=== PATIENT | male | born 1980 | race Caucasian/White ===

== ENCOUNTER 2016-05-14 03:54 | Emergency (ER) | payer MEDICARE, MEDICAID ==
[2016-05-14 04:11] VITALS: BP 125/60; PULSE 92; RESP 18; TEMP 98.1; O2SAT 96
[2016-05-14] MEDS ORDERED: SODIUM CHLOR 0.9% 1000 ML INJ 1,000 ML IV ONE (05:45)
[2016-05-14] MEDS ORDERED: SODIUM CHLORIDE 0.9% FLUSH 10 ML FLUSH IVF PRN (05:45)
[2016-05-14 06:08] VITALS: BP 136/74; PULSE 75; RESP 17; O2SAT 97
[2016-05-14 06:18] LABS: AUTOMATED NEUTROPHIL # 7.5 TH/MM3 (1.8-7.7); BASOPHIL # 0.1 TH/MM3 (0-0.2); BASOPHIL % 0.8 % (0.0-2.0); EOSINOPHIL % 0.2 % (0.0-4.0); HEMATOCRIT 43.7 % (39.0-51.0); HEMO FLAGS DIFF FINAL; LYMPH % 26.3 % (9.0-44.0); LYMPHOCYTE # 3.1 TH/MM3 (1.0-4.8); MEAN CELL VOLUME 87.8 FL (80.0-100.0); MEAN CORPUSCULAR HGB CONC 34.2 % (32.0-36.0); MONO % 9.5 % (0.0-8.0); NEUT % 63.2 % (16.0-70.0); PLATELET COUNT 292 TH/MM3 (150-450); RED BLOOD COUNT 4.98 MIL/MM3 (4.50-5.90); RED CELL DISTRIBUTION WIDTH 13.2 % (11.6-17.2); WHITE BLOOD COUNT 11.9 TH/MM3 (4.0-11.0)
[2016-05-14 06:34] LABS: BICARBONATE 22.1 MEQ/L (21.0-32.0); POTASSIUM 4.1 MEQ/L (3.5-5.1)
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
[2016-05-14 06:55] VITALS: BP 136/74; PULSE 82; RESP 16; O2SAT 97
[2016-05-14 07:15] VITALS: BP 124/66; PULSE 82; RESP 20; O2SAT 97
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
[2016-05-14 09:50] VITALS: BP 130/73
== END 2016-05-14 09:50 | disposition home or self-care (01) ==
LOC: NEPC 03:54
DX: F10.120 Alcohol abuse with intoxication, uncomplicated (principal); F17.200 Nicotine dependence, unspecified, uncomplicated; Z86.59 Personal history of other mental and behavioral disorders; Z86.69 Personal history of other diseases of the nervous system and sense organs; Y04.2XXA Assault by strike against or bumped into by another person, initial encounter
CPT/HCPCS: 70450; 80048; 80307; 85025; 96360; 99284; J7030

== ENCOUNTER 2016-11-18 00:32 | Emergency (ER) | payer MEDICARE, MEDICAID ==
[~2016-11-18] VITALS: Ht 182.9 cm; Wt 85.0 kg
[2016-11-18 00:34] VITALS: BP 131/81; PULSE 123; RESP 16; TEMP 98.5; O2SAT 96
--- NOTE | 2016-11-18 01:38 | PD ---
HPI Chief Complaint: Seizure Time Seen by Provider: 01:06 Travel History International Travel<30 days: No Contact w/Intl Traveler<30days: No Traveled to known affect area: No History of Present Illness HPI The patient is a 36 year old male who presents to the [facility] emergency department with a history of reportedly stating to the triage nurse that he is here to be evaluated for having seizure symptoms. On my arrival to the room, the patient is sleeping soundly and difficult to arouse. The patient when he is awake and mainly answers with one word answers. The patient reports that he does not know why he is in the emergency department. He reports that he does have a history of seizures. He reports that he is on Keppra for seizures. He has been taking his seizure medication on a regular basis. The patient denies having any other acute complaints. On review of systems, the patient denies having any recent fevers, cough, congestion, neck pain, chest pain, shortness of breath, abdominal pain, vomiting, diarrhea, urinary symptoms, or other neurologic symptoms. PFSH Past Medical History Narrative Medical The patient's past medical history is significant for seizure disorder. Anxiety: Yes Depression: Yes Diminished Hearing: No Seizures: Yes Past Surgical History Narrative Surgical The patient's past surgical history is reportedly significant for "brain" surgery. Other Surgery: Yes (BRAIN) Social History Alcohol Use: Yes (daily beer) Tobacco Use: Yes (1ppd) Substance Use: Yes Allergies-Medications (Allergen,Severity, Reaction): Coded Allergies: No Known Allergies (Verified , 11/18/16) Reported Meds & Prescriptions Reported Meds & Active Scripts Active No Active Prescriptions or Reported Medications Review of Systems Except as stated in HPI: all other systems reviewed are Neg General / Constitutional: No: Fever Eyes: No: Visual changes HENT: No: Headaches Cardiovascular: No: Chest Pain or Discomfort Respiratory: No: Shortness of Breath Gastrointestinal: No: Abdominal Pain Genitourinary: No: Dysuria Musculoskeletal: No: Pain Skin: No Rash Neurologic: Positive: Seizures, No: Weakness, Focal Abnormalities, Change in Mentation, Slurred Speech, Sensory Disturbance Psychiatric: No: Depression Endocrine: No: Polydipsia Hematologic/Lymphatic: No: Easy Bruising Physical Exam Narrative General: The patient is a well-developed well-nourished male in no acute distress. Sleeping soundly on my arrival to the room. Head and Neck exam: Head is normocephalic atraumatic. Eyes: The patient is uncooperative with formal ocular motion testing. The patient's pupils are equal round and reactive to light, dilated at 6 mm per Nose: Midline septum with pink mucous membranes Mouth: Dentition unremarkable. Moist mucus membranes. Posterior oropharynx is not erythematous. No tonsillar hypertrophy. Uvula midline. Airway patent. No evidence of tongue trauma, contusion, or laceration. Neck: No palpable lymphadenopathy. No nuchal rigidity. No thyromegaly. Cardiovascular: Sinus tachycardia in the low 100 without murmurs, gallops, or rubs. No pulse deficit to the extremities and simultaneous auscultation and palpation of his radial artery. Lungs: Clear to auscultation bilaterally. No wheezes, rhonchi, or rales. Abdomen: Soft, without tenderness to palpation in all 4 quadrants of the abdomen. No guarding, rebound, or rigidity. Normal bowel sounds are audible. No tenderness on palpation of McBurney's point. Extremities: No clubbing or cyanosis. The patient has trace pedal edema. 2+ pulses in all 4 extremities. No calf tenderness on palpation. Back: No costovertebral angle tenderness to palpation. Neurologic Exam: The patient is uncooperative with formal neurologic testing as he repeatedly falls asleep. However, the patient is able to move all extremities equally is 5 over 5 strength. The patient has intact sensation over all dermatomes. The patient is oriented to person, however not place, time , or situation. Skin Exam: No rash noted. Intact skin that is warm and dry. Data Data Last Documented VS Vital Signs Date Time Temp Pulse Resp B/P (MAP) Pulse Ox O2 Delivery O2 Flow Rate FiO2 11/18/16 03:19 90 18 126/63 (84) 99 Room Air 11/18/16 00:34 98.5 Orders Orders Electrocardiogram (11/18/16 01:39) Complete Blood Count With Diff (11/18/16 01:39) Comprehensive Metabolic Panel (11/18/16 01:39) Urinalysis - C+S If Indicated (11/18/16 01:39) Potassium, Serum (K) (11/18/16 01:39) Chest, Single Ap (11/18/16 01:39) Ct Brain W/O Iv Contrast(Rout) (11/18/16 01:39) Drug Screen, Random Urine (11/18/16 01:39) Alcohol (Ethanol) (11/18/16 01:39) Sodium Chlor 0.9% 1000 Ml Inj (Ns 1000 M (11/18/16 01:45) Labs Laboratory Tests Test 11/18/16 01:45 White Blood Count 10.1 TH/MM3 Red Blood Count 5.43 MIL/MM3 Hemoglobin 16.7 GM/DL Hematocrit 46.4 % Mean Corpuscular Volume 85.4 FL Mean Corpuscular Hemoglobin 30.7 PG Mean Corpuscular Hemoglobin Concent 36.0 % Red Cell Distribution Width 13.3 % Platelet Count 371 TH/MM3 Mean Platelet Volume 8.0 FL Neutrophils (%) (Auto) 65.1 % Lymphocytes (%) (Auto) 24.2 % Monocytes (%) (Auto) 8.5 % Eosinophils (%) (Auto) 0.4 % Basophils (%) (Auto) 1.8 % Neutrophils # (Auto) 6.6 TH/MM3 Lymphocytes # (Auto) 2.4 TH/MM3 Monocytes # (Auto) 0.9 TH/MM3 Eosinophils # (Auto) 0.0 TH/MM3 Basophils # (Auto) 0.2 TH/MM3 CBC Comment AUTO DIFF Differential Comment AUTO DIFF CONFIRMED Blood Urea Nitrogen 11 MG/DL Creatinine 1.11 MG/DL Random Glucose 101 MG/DL Total Protein 8.8 GM/DL Albumin 4.3 GM/DL Calcium Level 8.5 MG/DL Alkaline Phosphatase 102 U/L Aspartate Amino Transf (AST/SGOT) 53 U/L Alanine Aminotransferase (ALT/SGPT) 104 U/L Total Bilirubin 0.7 MG/DL Sodium Level 140 MEQ/L Potassium Level 4.2 MEQ/L Chloride Level 104 MEQ/L Carbon Dioxide Level 26.1 MEQ/L Anion Gap 10 MEQ/L Estimat Glomerular Filtration Rate 76 ML/MIN Ethyl Alcohol Level 207 MG/DL [facility]DM Medical Decision Making Medical Screen Exam Complete: Yes Emergency Medical Condition: Yes Medical Record Reviewed: Yes Interpretation(s) Last Impressions Head CT 11/18/16138 Signed Impressions: Service Date/Time: Friday, November 18, 2016 02:19 - CONCLUSION: Negative noncontrast head CT. Jonny Jalloh MD Chest X-Ray 11/18/16138 Signed Impressions: Service Date/Time: Friday, November 18, 2016 01:52 - CONCLUSION: Trace bibasilar atelectasis. Jonny Jalloh MD Differential Diagnosis Alcohol intoxication, versus other substance intoxication, versus intracranial abnormality, versus psychiatric disorder, versus metabolic encephalopathy Narrative Course During the course of the patients emergency department visit, the patients history, examination, and differential diagnosis were reviewed with the patient. The patient had IV access obtained and blood work sent for analysis. The patient was placed on a night monitor with oximetry and frequent blood pressure monitoring. An ECG was done on arrival. The patient's ECG reveals a sinus rhythm heart rate of 96, marked left axis deviation, no acute ST segment elevation or depression, T waves are inverted in lead 3, V1. The patient was initially provided normal saline 1 L IV fluid bolus. The patients laboratory studies were reviewed and remarkable for a white count of 10.1, hemoglobin 16.7, platelets 371 with monocytes 8.5, CMP is remarkable for a GFR 76, AST 53, ALT 104, total protein 8.8, alcohol level CCVII. Radiology studies were reviewed and remarkable for a chest x-ray that shows bibasilar atelectasis, no other acute abnormality. CT scan of the brain shows The patient will be observed in the emergency department till he has improvement in his mentation and is able to walk without assistance. The patient is resting comfortably and feels better, is alert and in no distress. The patients results and examination findings were discussed with the patient. The repeat examination is unremarkable and benign. The history, exam, diagnostic testing, and current condition do not suggest any significant pathology to warrant further testing, continued ED treatment, admission, or surgical evaluation at this point. The vital signs have been stable. The patient does not have uncontrollable pain, intractable vomiting, or other significant symptoms. The patient's condition is stable and appropriate for discharge. The patient will pursue further outpatient evaluation with a primary care physician or other designated or consulting physician as indicated in the discharge instructions. The patient expressed understanding and was agreeable with this plan. Diagnosis Primary Impression: Alcohol intoxication Qualified Codes: F10.929 - Alcohol use, unspecified with intoxication, unspecified Referrals: Primary Care Physician 2 days Med/Other Pt SpecificInfo: No Change to Meds Scripts No Active Prescriptions or Reported Meds Disposition: DISCHARGE HOME Condition: Stable Dinorah Diaz MD Nov 18, 2016 01:38
[2016-11-18] MEDS ORDERED: SODIUM CHLOR 0.9% 1000 ML INJ 1,000 ML IV ONE (01:45)
[2016-11-18 01:56] LABS: AUTOMATED NEUTROPHIL # 6.6 TH/MM3 (1.8-7.7); BASOPHIL # 0.2 TH/MM3 (0-0.2); BASOPHIL % 1.8 % (0.0-2.0); EOSINOPHIL % 0.4 % (0.0-4.0); HEMATOCRIT 46.4 % (39.0-51.0); LYMPH % 24.2 % (9.0-44.0); LYMPHOCYTE # 2.4 TH/MM3 (1.0-4.8); MEAN CELL VOLUME 85.4 FL (80.0-100.0); MEAN CORPUSCULAR HEMOGLOBIN 30.7 PG (27.0-34.0); MONO % 8.5 % (0.0-8.0); NEUT % 65.1 % (16.0-70.0); PLATELET COUNT 371 TH/MM3 (150-450); RED BLOOD COUNT 5.43 MIL/MM3 (4.50-5.90); RED CELL DISTRIBUTION WIDTH 13.3 % (11.6-17.2); WHITE BLOOD COUNT 10.1 TH/MM3 (4.0-11.0)
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
[2016-11-18 02:06] LABS: HEMO FLAGS AUTO DIFF
[2016-11-18 02:11] LABS: ALT (GPT) 104 U/L (12-78); ANION GAP 10 MEQ/L (5-15); AST (GOT) 53 U/L (15-37); BICARBONATE 26.1 MEQ/L (21.0-32.0); BLOOD UREA NITROGEN 11 MG/DL (7-18); CHLORIDE 104 MEQ/L (98-107); GLOMERULAR FILTRATION RATE 76 ML/MIN (>89); POTASSIUM 4.2 MEQ/L (3.5-5.1); SODIUM (NA) 140 MEQ/L (136-145)
[2016-11-18 02:13] LABS: ALKALINE PHOSPHATASE 102 U/L (45-117); TOTAL BILIRUBIN ADULT 0.7 MG/DL (0.2-1.0)
[2016-11-18 02:24] LABS: ALCOHOL 207 MG/DL (0-5)
[2016-11-18 02:40] LABS: SCAN/DIFF AUTO DIFF CONFIRMED
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
[2016-11-18 03:19] VITALS: BP 126/63; PULSE 90; RESP 18; O2SAT 99
[2016-11-18 06:50] LABS: BACTERIA, URINE RARE /hpf; BLOOD, URINE NEG (NEG); GLUCOSE,URINE NEG (NEG); GRANULAR CAST, URINE 1 /lpf; HYALINE CAST, URINE 4 /lpf (RARE); KETONE, URINE NEG (NEG); MUCUS URINE FEW /lpf (OCC); NITRITE,URINE NEG (NEG); URINE COLOR YELLOW (YELLW/STRAW)
[2016-11-18 07:00] LABS: COMMENT (UR) CULT NOT INDICATED; CULTURE IF INDICATED CULT NOT INDICATED
--- NOTE | 2016-11-18 10:03 | EKG ---
Date Performed: 11/18/2016 Time Performed: 02:12:07 PTAGE: 36 years EKG: Sinus rhythm POSSIBLE LEFT ATRIAL ENLARGEMENT MARKED LEFT AXIS DEVIATION S1-S2-S3 PATTERN, CONSISTENT WITH PULMON NIKITA DISEASE, RVH, OR NORMAL VARIANT ABNORMAL ECG PREVIOUS TRACING : 04/18/2013 09.30 DOCTOR: Aditya Berg Interpretating Date/Time 11/18/2016 10:03:06
== END 2016-11-18 06:36 | disposition home or self-care (01) ==
LOC: NEPE 00:32
DX: R56.9 Unspecified convulsions (principal); F10.129 Alcohol abuse with intoxication, unspecified; R00.0 Tachycardia, unspecified; J98.11 Atelectasis; R94.31 Abnormal electrocardiogram [ECG] [EKG]; F41.9 Anxiety disorder, unspecified; F32.9 Major depressive disorder, single episode, unspecified; F17.200 Nicotine dependence, unspecified, uncomplicated
CPT/HCPCS: 70450; 71010; 80053; 80307; 81001; 85025; 93005; 96360; 99285; J7030